=== PATIENT | male | born 1960 | race Caucasian/White ===

== ENCOUNTER 2021-02-14 23:33 | Emergency (ER) | payer OTHER ==
[~2021-02-14] VITALS: Ht 165.1 cm; Wt 67.1 kg
[2021-02-14 23:58] VITALS: BP 158/79
--- NOTE | 2021-02-15 00:03 | NUR ---
PT TO LOBBY
[2021-02-15] MEDS ORDERED: IBUP-2213 PO (00:28)
[2021-02-15] MEDS ORDERED: GUAI-646 PO (00:28)
[2021-02-15] MEDS ORDERED: PRED20TA5 PO (00:28)
[2021-02-15] MEDS: KETOROLAC 60 MG/2 ML VIAL IM ONE (00:35)
--- NOTE | 2021-02-15 00:40 | NUR ---
Patient discharged with v/s stable. Written and verbal after care instructions given and explained. Patient alert, oriented and verbalized understanding of instructions. Ambulatory with steady gait. All questions addressed prior to discharge. ID band removed. Patient advised to follow up with PMD. Rx of MOTRIN, AND PREDNISONE, MUCINEX given. Patient educated on indication of medication including possible reaction and side effects. Opportunity to ask questions provided and answered.
== END 2021-02-15 00:40 | disposition home or self-care (01) ==
LOC: MED 23:33
DX: R05.9 Cough, unspecified (principal); R10.13 Epigastric pain; E11.9 Type 2 diabetes mellitus without complications; I10 Essential (primary) hypertension; Z98.890 Other specified postprocedural states; Z90.49 Acquired absence of other specified parts of digestive tract
CPT/HCPCS: 82948; 96372; 99283; J1885